=== PATIENT | female | born 1940 | race Caucasian/White ===

== ENCOUNTER 2022-10-07 15:35 | Outpatient (CLI) | payer MEDICARE | END 2022-10-07 15:36 | disposition home or self-care (01) | LOC: SCSRAD 15:35 | PROVIDERS: ATTEND Nurse Practitioner Family | DX: M54.50 Low back pain, unspecified (principal); M47.816 Spondylosis without myelopathy or radiculopathy, lumbar region; S22.080A Wedge compression fracture of T11-T12 vertebra, initial encounter for closed fracture; S32.019A Unspecified fracture of first lumbar vertebra, initial encounter for closed fracture; Z98.1 Arthrodesis status | CPT/HCPCS: 72100; 87086 ==